=== PATIENT | male | born 1990 | race Two or more races ===

== ENCOUNTER → 2023-07-08 | Outpatient (CLI) | payer BC ==
[2023-07-08 13:17] LABS: Basophils # (auto) 0 10 ^3/uL (0-0.2); Basophils % (auto) 0.3 % (0.0-2.0); Eosinophils # (auto) 0.1 10 ^3/uL (0-0.8); Eosinophils % (auto) 1.3 % (0.0-7.0); Hematocrit 49.1 % (41.0-53.0); Hemoglobin 16.8 g/dL (13.5-17.5); Lymphocytes # (auto) 1.8 10 ^3/uL (0.4-5.4); Lymphocytes % (auto) 34.2 % (10.0-50.0); Mean Corpuscular Hemoglobin 31.5 pg (28.0-32.0); Mean Corpuscular Hgb Conc. 34.2 g/dL (32.0-36.0); Mean Corpuscular Volume 92.1 fL (80.0-100.0); Monocytes # (auto) 0.4 10 ^3/uL (0-1.3); Monocytes % (auto) 6.8 % (0.0-12.0); Neutrophils % (auto) 57.4 % (37.0-80.0); Nucleated Red Blood Cells % 0.1 %; Red Blood Cells 5.33 10^6/uL (4.5-5.90); White Blood Cell 5.3 10^3/uL (4.4-10.8)
[2023-07-08 14:04] LABS: Alanine Aminotransferase 26 U/L (7-40); Alkaline Phosphatase 78 U/L (46-116); Anion Gap 4 (5-15); Aspartate Aminotransferase 19 U/L (13-40); BUN/Creatinine Ratio 10.1 (10.0-20.0); Blood Urea Nitrogen 10 mg/dL (9-23); Calcium 9.7 mg/dL (8.7-10.4); Carbon Dioxide 28 mmol/L (20-30); Chloride 108 mmol/L (98-107); Glucose 102 mg/dL (74-106); Magnesium 1.8 mg/dL (1.6-2.6); Potassium 4.1 mmol/L (3.5-5.1); Sodium 140 mmol/L (136-145); Uric Acid 6.2 mg/dL (3.7-9.2)
[2023-07-08 14:05] LABS: Albumin 4.6 g/dL (3.2-4.8); Bilirubin, Total 0.6 mg/dL (0.2-1.0); Total Protein 7.7 g/dL (5.7-8.2)
[2023-07-08 14:06] LABS: Urine Bacteria NONE SEEN /hpf (None Seen); Urine Blood Negative /uL (Negative); Urine Clarity Clear (Clear); Urine Color Yellow (Yellow); Urine Protein, UAD TRACE (Negative); Urine Specific Gravity 1.024 (1.001-1.035); Urine Urobilinogen Normal (Negative); Urine WBC <1 /hpf (0 - 3); Urine pH 5.5 (5.0-8.0)
[2023-07-08 14:10] LABS: Folate (Folic Acid) 17.31 ng/mL (>5.38)
== END | disposition home or self-care (01) ==
LOC: LAB 12:53
PROVIDERS: ATTEND Internal Medicine
DX: E61.2 Magnesium deficiency (principal); R94.6 Abnormal results of thyroid function studies; E79.0 Hyperuricemia without signs of inflammatory arthritis and tophaceous disease; E85.9 Amyloidosis, unspecified; R82.90 Unspecified abnormal findings in urine; D51.9 Vitamin B12 deficiency anemia, unspecified
CPT/HCPCS: 36415; 80053; 81001; 82306; 82607; 82746; 83036; 83735; 84443; 84550; 85025; 87086

== ENCOUNTER → 2024-06-30 | Outpatient (CLI) | payer BC ==
[2024-06-30 08:20] LABS: Urine Bacteria None Seen /hpf (None Seen)
[2024-06-30 08:24] LABS: Basophils # (auto) 0 10 ^3/uL (0-0.2); Basophils % (auto) 0.3 % (0.0-2.0); Eosinophils # (auto) 0.1 10 ^3/uL (0-0.8); Eosinophils % (auto) 2.4 % (0.0-7.0); Hemoglobin 16.7 g/dL (13.5-17.5); Lymphocytes % (auto) 43.5 % (10.0-50.0); Mean Corpuscular Hgb Conc. 34.7 g/dL (32.0-36.0); Mean Corpuscular Volume 92.2 fL (80.0-100.0); Monocytes # (auto) 0.4 10 ^3/uL (0-1.3); Monocytes % (auto) 8.1 % (0.0-12.0); Neutrophils # (auto) 2.1 10 ^3/uL (1.6-8.6); Neutrophils % (auto) 45.7 % (37.0-80.0); Nucleated Red Blood Cells % 0.1 %; Platelet Count (auto) 213 10^3/uL (140-450); Red Cell Distribution Width 13.5 % (11.8-14.3); White Blood Cell 4.7 10^3/uL (4.4-10.8)
[2024-06-30 08:39] LABS: Urine Blood Negative /uL (Negative); Urine Clarity Clear (Clear); Urine Color Light-Yellow (Yellow); Urine Mucus FEW (None Seen); Urine Protein, UAD Negative (Negative); Urine Specific Gravity 1.023 (1.001-1.035); Urine Urobilinogen Normal (Negative); Urine WBC <1 /hpf (0 - 3)
[2024-06-30 09:18] LABS: Alanine Aminotransferase 28 U/L (7-40); Alkaline Phosphatase 62 U/L (46-116); Anion Gap 6 (5-15); BUN/Creatinine Ratio 10.1 (10.0-20.0); Blood Urea Nitrogen 11 mg/dL (9-23); Calcium 10.2 mg/dL (8.7-10.4); Carbon Dioxide 28 mmol/L (20-31); Chloride 108 mmol/L (98-107); Glucose 89 mg/dL (74-106); LDL Cholesterol 93 mg/dL (< 100); Magnesium 2.1 mg/dL (1.6-2.6); Sodium 142 mmol/L (136-145); Triglycerides 101 mg/dL (< 150)
[2024-06-30 09:19] LABS: Albumin 4.7 g/dL (3.2-4.8); Aspartate Aminotransferase 21 U/L (13-40); Cholesterol 166 mg/dL (< 200); HDL Cholesterol 62 mg/dL (40-59)
[2024-06-30 09:20] LABS: Bilirubin, Total 0.9 mg/dL (0.2-1.0); Total Protein 7.5 g/dL (5.7-8.2)
[2024-06-30 09:22] LABS: Folate (Folic Acid) 11.27 ng/mL (>5.38)
[2024-06-30 10:14] LABS: Uric Acid 6.4 mg/dL (3.7-9.2)
== END | disposition home or self-care (01) ==
LOC: LAB 08:01
PROVIDERS: ATTEND Internal Medicine
DX: R73.03 Prediabetes (principal); E66.01 Morbid (severe) obesity due to excess calories; Z00.00 Encounter for general adult medical examination without abnormal findings
CPT/HCPCS: 36415; 80053; 80061; 81001; 82306; 82607; 82746; 83036; 83735; 84443; 84550; 85025; 87086